=== PATIENT | male | born 1960 | race Caucasian/White ===

== ENCOUNTER → 2018-09-17 | Outpatient (CLI) | payer BC ==
[2018-09-17 10:00] LABS: BASO % 0.4 % (0.0-2.0); EOS # 0.1 (0.0-0.7); EOS % 1.3 % (0-4.0); GRAN # 3.2 (1.4-6.5); GRAN % 57.8 % (42.2-75.2); HEMOGLOBIN 15.4 g/dl (13.5-18.0); LYMPH # 1.8 (1.2-3.4); LYMPH % 32.2 % (20.0-51.0); MEAN CELL VOLUME 93 fl (80.0-100.0); MEAN CORPUSCULAR HEMOGLOBIN 32 pg (27.0-31.0); MEAN CORPUSCULAR HGB CONC 34 g/dl (33.0-37.0); MEAN PLATELET VOLUME 9.3 fl (7.4-10.4); MONO # 0.4 (0.1-0.6); MONO % 8.1 % (1.7-9.3); PLATELET COUNT 150 K/mm3 (130-400); RED BLOOD COUNT 4.82 M/mm3 (4.20-5.60); REDCELL DISTRIBUTION WIDTH-CV 11.8 % (11.5-14.5)
[2018-09-17 10:30] LABS: BILIRUBIN,TOTAL 0.6 mg/dL (0.0-1.0); CALCIUM 9.2 mg/dL (8.4-10.2); CREATININE, serum 0.73 mg/dL (0.66-1.25); POTASSIUM 4.7 mmol/L (3.4-5.0); TOTAL PROTEIN 6.5 gm/dL (6.4-8.2)
[2018-09-17 11:01] LABS: CARBAMAZEPINE (TEGRETOL) 6.9 ug/mL (4.0-12.0)
[2018-09-17 11:29] LABS: PSA-TOTAL 1.73 ng/mL (0-4)
== END ==
LOC: COL.LAB 09:27
PROVIDERS: Family Medicine
DX: Z12.5 Encounter for screening for malignant neoplasm of prostate (principal); G40.909 Epilepsy, unspecified, not intractable, without status epilepticus; Z79.899 Other long term (current) drug therapy
CPT/HCPCS: G0103

== ENCOUNTER → 2018-11-28 | Outpatient (CLI) | payer BC | LOC: COL.LAB 12:17 | DX: G40.909 Epilepsy, unspecified, not intractable, without status epilepticus (principal) ==

== ENCOUNTER 2020-07-18 09:10 | Emergency (ER) | payer BC ==
[~2020-07-18] VITALS: Ht 190.5 cm; Wt 90.9 kg
[~2020-07-18 09:10] MED LIST: FLOMAX 0.40.4 MG/CAP PO; NEURONTIN300 MG/CAP PO; OMNICEF 300MG300 MG PO; OSCAL 500 TAB500 MG PO; PRIL40 PO; TEGRETOL 2200 MG/TA1 PO; ZOFRAN8 MG PO
[2020-07-18 10:02] LABS: BASO % 0.4 % (0.0-2.0); EOS # 0.2 (0.0-0.7); EOS % 3.2 % (0-4.0); GRAN # 3.1 (1.4-6.5); GRAN % 57.6 % (42.2-75.2); HEMATOCRIT 42.5 % (42.0-52.0); HEMOGLOBIN 14.8 g/dl (13.5-18.0); LYMPH # 1.6 (1.2-3.4); LYMPH % 29.7 % (20.0-51.0); MEAN CELL VOLUME 94 fl (80.0-100.0); MEAN CORPUSCULAR HEMOGLOBIN 33 pg (27.0-31.0); MEAN CORPUSCULAR HGB CONC 35 g/dl (33.0-37.0); MEAN PLATELET VOLUME 9.5 fl (7.4-10.4); MONO # 0.5 (0.1-0.6); MONO % 8.9 % (1.7-9.3); PLATELET COUNT 147 K/mm3 (130-400); RED BLOOD COUNT 4.52 M/mm3 (4.20-5.60); REDCELL DISTRIBUTION WIDTH-CV 11.8 % (11.5-14.5)
[2020-07-18 10:15] LABS: ALANINE AMINOTRANSFERASE 16 U/L (4-49); ALKALINE PHOSPHATASE 67 U/L (50-136); ANION GAP 5 mmol/L (7-16); AST,SGOT 23 U/L (15-37); BILIRUBIN,TOTAL 0.5 mg/dL (0.0-1.0); BLOOD UREA NITROGEN 16 mg/dL (9-20); CALCIUM 8.9 mg/dL (8.4-10.2); CARBON DIOXIDE 26 mmol/L (22-30); CHLORIDE 102 mmol/L (98-107); CREATININE, serum 0.67 (0.66-1.25); GLUCOSE 110 mg/dL (74-106); LIPASE 44 U/L (23-300); POTASSIUM 4.2 mmol/L (3.4-5.0); SODIUM 133 mmol/L (137-145); TOTAL PROTEIN 6.2 gm/dL (6.4-8.2)
[2020-07-18 10:29] LABS: TROPONIN-I < 0.012 ng/mL (0.000-0.035)
[2020-07-18 13:29] VITALS: BP 119/75; PULSE 53; TEMP 98.3
== END 2020-07-18 13:18 | disposition home or self-care (01) ==
LOC: COL.ER 09:10
PROVIDERS: Emergency Medicine
DX: R07.9 Chest pain, unspecified (principal); K21.9 Gastro-esophageal reflux disease without esophagitis
CPT/HCPCS: J7030

== ENCOUNTER 2021-09-14 22:19 | Emergency (ER) | payer BC ==
[~2021-09-14 22:19] MED LIST changes: +ASPIRIN 81M81 MG/TA2 PO; +PROVENTIL0.09 MG/A1 IH
[2021-09-14 22:24] VITALS: TEMP 97.4
[2021-09-14] MEDS ORDERED: NORCO 325 MG-51 TAB PO ×2 (22:59→23:19)
[2021-09-14 23:35] VITALS: BP 238/78; PULSE 78
[2021-09-15] MEDS ORDERED: NORCO 325 MG-51 TAB PO (09:38)
== END 2021-09-14 23:35 | disposition home or self-care (01) ==
LOC: COL.ER 22:19
DX: M54.32 Sciatica, left side (principal); M53.3 Sacrococcygeal disorders, not elsewhere classified